=== PATIENT | female | born 1995 | race Caucasian/White ===

== ENCOUNTER 2020-02-07 20:14 | Emergency (ER) | payer MEDICAID ==
[~2020-02-07] VITALS: Ht 170.2 cm; Wt 121.6 kg
[2020-02-07 20:29] VITALS: BP 132/87
[2020-02-07] MEDS ORDERED: BACTRIM DS TAB1 EACH PO (20:55)
[2020-02-07] MEDS ORDERED: HYDROXYZINE HCL25 M2 PO (20:55)
[2020-02-07] MEDS ORDERED: HYDROCORTISONE3011 TP (20:56)
[2020-02-07] MEDS ORDERED: PREDNISONE 20 M20 MG PO (20:56)
== END 2020-02-07 21:10 | disposition home or self-care (01) ==
LOC: M.ERS 20:14
DX: R21 Rash and other nonspecific skin eruption (principal)